=== PATIENT | female | born 1985 | race Caucasian/White ===

== ENCOUNTER 2021-04-13 05:43 | Inpatient (IN) ==
[2021-04-13] MEDS ORDERED: BUTORPHANOL 2 MG/ML VIAL IV PRN (05:53)
[2021-04-13] MEDS ORDERED: ONDANSETRON 4 MG/2 ML VIAL IV PRN ×3 (05:53→15:01)
[2021-04-13] MEDS ORDERED: MEPERIDINE 50 MG/1 ML VIAL IV PRN (05:53)
[2021-04-13 06:38] LABS: Basophils % 0.2 % (0.0-0.8); Eosinophils # 0.1 10*3/uL (0.0-0.87); Eosinophils % 0.4 % (0.00-10.9); Hemoglobin 12.1 GM/DL (12.0-16.0); Immature Granulocytes % 1.1 %; Immature Granulocytes Absolute 0.17 #; Lymphocytes # 3.2 10*3/uL (1.4-4.0); Lymphocytes % 20.4 % (21.3-54.2); Mean Corpuscular HGB Conc 32.7 GM/DL (32-36); Mean Corpuscular Volume 91.6 FL (87-102); Monocytes % 4.1 % (1.7-12.7); Neutrophils % 73.8 % (38.7-73.9); Platelet Count 219 T/CUMM (130-400); Red Blood Count 4.04 MC/CUMM (3.8-5.5); Red Cell Distribution Width 13.5 % (9.3-17.3); White Blood Count 15.8 T/CUMM (4-12)
[2021-04-13] MEDS ORDERED: OXYTOCIN/LR 20 UNIT/1,000 ML BAG IV ONE ×3 (06:43→15:01)
[2021-04-13 06:54] LABS: Albumin 2.4 G/DL (3.4-5.0); Bilirubin,Total 1.4 MG/DL (0.20-1.00); Calcium 9.4 MG/DL (8.5-10.1); Potassium 3.9 MMOL/L (3.5-5.1); Total Protein 6.4 G/DL (6.4-8.2)
[2021-04-13] MEDS: LACTATED RINGERS 1,000 ML IV SCH ×2 (07:26→13:03)
[2021-04-13] MEDS ORDERED: NALOXONE 0.4 MG/ML VIAL IV PRN (09:58)
[2021-04-13] MEDS ORDERED: hydrOXYzine HCL 25 MG/1 ML VIAL IM PRN (09:58)
[2021-04-13] MEDS ORDERED: ePHEDrine 50 MG/ML VIAL IV PRN (09:58)
[2021-04-13] MEDS ORDERED: PROMETHAZINE 25 MG/1 ML VIAL IM PRN (09:58)
[2021-04-13] MEDS ORDERED: FAMOTIDINE 20 MG/2 ML VIAL IV ONE (09:58)
[2021-04-13] MEDS ORDERED: LACTATED RINGERS 250 ML IV PRN (09:58)
[2021-04-13] MEDS ORDERED: LACTATED RINGERS 1,000 ML IV ONE (09:58)
[2021-04-13] MEDS ORDERED: CITRIC ACID/SODIUM CITRATE 30 ML UDCUP PO ONE (09:58)
[2021-04-13] MEDS ORDERED: diphenhydrAMINE 50 MG/1 ML VIAL IV PRN ×2 (09:58)
[2021-04-13] MEDS ORDERED: fentaNYL 2 MCG/ROPIV 0.2% EPID 100 ML EPIDURAL SCH (10:00)
[2021-04-13] MEDS ORDERED: ePHEDrine 50 MG/ML VIAL IV STA (11:51)
[2021-04-13] MEDS ORDERED: miSOPROStoL 200 MCG TABLET ONE (14:14)
[2021-04-13] MEDS ORDERED: TRANEXAMIC ACID 1,000 MG/10 ML VIAL ONE (14:14)
[2021-04-13] MEDS ORDERED: CARBOPROST TROMETHAMINE 250 MCG/ML AMP IM ONE (14:15)
[2021-04-13] MEDS ORDERED: METHYLERGONOVINE 0.2 MG/1 ML AMP ONE (14:15)
[2021-04-13] MEDS ORDERED: SODIUM CHLORIDE 0.9% 0 ML IV ONE (14:15)
[2021-04-13] MEDS ORDERED: LANOLIN 50% CREAM 0.3 OZ TUBE TOP PRN (15:01)
[2021-04-13] MEDS ORDERED: HYDROCORTISONE 2.5% RECTAL CREAM 30 GM TUBE TOP PRN (15:01)
[2021-04-13] MEDS ORDERED: MEASLES/MUMPS/RUBELLA VACCINE 0.5 ML VIAL SUBCUT ONE (15:01)
[2021-04-13] MEDS ORDERED: METHYLERGONOVINE 0.2 MG/1 ML AMP IM ONE (15:01)
[2021-04-13] MEDS ORDERED: DIPH/TET/ACEL PERT BOOSTER VACCINE 0.5 ML VIAL IM ONE (15:01)
[2021-04-13] MEDS ORDERED: BENZOCAINE 20%/MENTHOL 0.5% SPRAY 56 GM CAN TOP PRN (15:01)
[2021-04-13] MEDS ORDERED: ACETAMINOPHEN 325 MG TABLET PO PRN (15:01)
[2021-04-13] MEDS ORDERED: ACETAMINOPHEN/CODEINE 300-30 MG TABLET PO PRN (15:01)
[2021-04-13] MEDS ORDERED: WITCH HAZEL PADS 100/JAR TOP PRN (15:01)
[2021-04-13] MEDS ORDERED: RHO(D) IMMUNE GLOBULIN 300 MCG SYRINGE IM ONE (15:01)
[2021-04-13] MEDS ORDERED: BISACODYL 10 MG SUPP RECTAL PRN (15:01)
[2021-04-13 15:05] LABS: Cord Arterial Blood HCO3 20.1 MMOL/L
[2021-04-13 15:07] LABS: Cord Venous Blood HCO3 18.5 MMOL/L; Cord Venous Blood PCO2 27.7 MMHG; Cord Venous Blood PO2 37.1 MMHG
[2021-04-13] MEDS: IBUPROFEN 800 MG TABLET PO PRN (18:43)
[2021-04-13] MEDS: DOCUSATE SODIUM 100 MG CAPSULE PO SCH (20:58)
[2021-04-14] MEDS: IBUPROFEN 800 MG TABLET PO PRN ×4 (00:25→20:10)
[2021-04-14 05:24] LABS: Basophils % 0.2 % (0.0-0.8); Eosinophils # 0.1 10*3/uL (0.0-0.87); Eosinophils % 0.4 % (0.00-10.9); Hematocrit 33.3 VOL% (35.7-47.0); Hemoglobin 11.4 GM/DL (12.0-16.0); Immature Granulocytes % 0.8 %; Immature Granulocytes Absolute 0.15 #; Lymphocytes # 3.1 10*3/uL (1.4-4.0); Lymphocytes % 16.5 % (21.3-54.2); Mean Corpuscular HGB Conc 34.2 GM/DL (32-36); Mean Corpuscular Volume 89.8 FL (87-102); Mean Platelet Volume 10.9 FL (9.6-12.0); Monocytes % 4.7 % (1.7-12.7); Neutrophils % 77.4 % (38.7-73.9); Platelet Count 178 T/CUMM (130-400); Red Blood Count 3.71 MC/CUMM (3.8-5.5); Red Cell Distribution Width 13.5 % (9.3-17.3)
[2021-04-14] MEDS: DOCUSATE SODIUM 100 MG CAPSULE PO SCH ×2 (08:20→20:10)
[2021-04-15] MEDS: IBUPROFEN 800 MG TABLET PO PRN (04:07)
[2021-04-15 10:42] VITALS: BP 149/90
[2021-04-15] MEDS: DOCUSATE SODIUM 100 MG CAPSULE PO SCH (13:10)
== END 2021-04-15 11:15 | disposition home or self-care (01) | DRG 560 ==
LOC: N.LD 05:43 → N.OB 18:18
PROVIDERS: ADMIT Obstetrics & Gynecology; ATTEND Obstetrics & Gynecology

== ENCOUNTER 2022-03-22 04:37 | Inpatient (IN) ==
[2022-03-22] MEDS ORDERED: TRANEXAMIC ACID 1,000 MG in SODIUM CHLORIDE 0.9% 100 ML IV PRN (05:20)
[2022-03-22] MEDS ORDERED: CARBOPROST TROMETHAMINE 250 MCG/ML AMP IM PRN (05:20)
[2022-03-22] MEDS ORDERED: OXYTOCIN/LR 20 UNIT/1,000 ML BAG IV PRN (05:20)
[2022-03-22] MEDS ORDERED: ONDANSETRON 4 MG/2 ML VIAL IV PRN ×2 (05:20→09:42)
[2022-03-22] MEDS ORDERED: METHYLERGONOVINE 0.2 MG/1 ML AMP IM PRN (05:20)
[2022-03-22] MEDS ORDERED: miSOPROStoL 200 MCG TABLET RECTAL PRN (05:20)
[2022-03-22] MEDS ORDERED: hydrOXYzine HCL 25 MG/1 ML VIAL IM PRN (05:23)
[2022-03-22] MEDS ORDERED: ONDANSETRON 4 MG/2 ML VIAL IV ONE (05:23)
[2022-03-22] MEDS ORDERED: diphenhydrAMINE 50 MG/1 ML VIAL IV PRN ×2 (05:23)
[2022-03-22] MEDS ORDERED: LACTATED RINGERS 1,000 ML IV PRN (05:23)
[2022-03-22] MEDS ORDERED: ePHEDrine 50 MG/ML VIAL IV PRN (05:23)
[2022-03-22] MEDS ORDERED: NALOXONE 0.4 MG/ML VIAL IV PRN (05:23)
[2022-03-22] MEDS ORDERED: PROMETHAZINE 25 MG/1 ML VIAL IM PRN (05:23)
[2022-03-22] MEDS ORDERED: CITRIC ACID/SODIUM CITRATE 30 ML UDCUP PO PRN (05:24)
[2022-03-22] MEDS ORDERED: FAMOTIDINE 20 MG/2 ML VIAL IV PRN (05:24)
[2022-03-22] MEDS ORDERED: LACTATED RINGERS 1,000 ML IV SCH (05:30)
[2022-03-22] MEDS ORDERED: fentaNYL 2 MCG/ROPIV 0.2% EPID 100 ML EPIDURAL SCH (05:30)
[2022-03-22 05:41] LABS: Basophils % 0.2 % (0.0-0.8); Eosinophils % 0.3 % (0.00-10.9); Hematocrit 34.5 VOL% (35.7-47.0); Hemoglobin 11.6 GM/DL (12.0-16.0); Immature Granulocytes % 0.7 %; Immature Granulocytes Absolute 0.11 #; Lymphocytes # 2.5 10*3/uL (1.4-4.0); Lymphocytes % 16.4 % (21.3-54.2); Mean Corpuscular HGB Conc 33.6 GM/DL (32-36); Mean Corpuscular Volume 89.1 FL (87-102); Mean Platelet Volume 10.6 FL (9.6-12.0); Monocytes # 0.8 10*3/uL (0.11-0.8); Monocytes % 5.3 % (1.7-12.7); Neutrophils % 77.1 % (38.7-73.9); Platelet Count 241 T/CUMM (130-400); Red Blood Count 3.87 MC/CUMM (3.8-5.5); White Blood Count 15.2 T/CUMM (4-12)
[2022-03-22 06:00] LABS: Alanine Aminotransferase 56 U/L (13-56); Albumin 2.3 G/DL (3.4-5.0); Alkaline Phosphatase 221 U/L (45-117); Aspartate Amino Transferase 35 U/L (0-37); Bilirubin,Total < 0.39 MG/DL (0.20-1.00); Blood Urea Nitrogen 12 MG/DL (7-18); Calcium 8.9 MG/DL (8.5-10.1); Carbon Dioxide 20 MMOL/L (21-32); Chloride 109 MMOL/L (98-107); Glucose 86 MG/DL (74-106); Osmolality,Calculated 273.7 MOS/KG (273-304); Potassium 3.8 MMOL/L (3.5-5.1); Sodium 138 MMOL/L (136-145); Total Protein 6.2 G/DL (6.4-8.2)
[2022-03-22] MEDS ORDERED: TRANEXAMIC ACID 1,000 MG/10 ML VIAL ONE (09:02)
[2022-03-22] MEDS ORDERED: SODIUM CHLORIDE 0.9% 0 ML IV ONE (09:02)
[2022-03-22] MEDS ORDERED: METHYLERGONOVINE 0.2 MG/1 ML AMP ONE (09:03)
[2022-03-22] MEDS ORDERED: CARBOPROST TROMETHAMINE 250 MCG/ML AMP IM ONE (09:03)
[2022-03-22 09:25] LABS: Cord Venous Blood HCO3 22.8 MMOL/L; Cord Venous Blood PCO2 47.6 MMHG; Cord Venous Blood PO2 30.7
[2022-03-22] MEDS ORDERED: DIPH/TET/ACEL PERT BOOSTER VACCINE 0.5 ML VIAL IM ONE (09:42)
[2022-03-22] MEDS ORDERED: BENZOCAINE 20%/MENTHOL 0.5% SPRAY 56 GM CAN TOP PRN (09:42)
[2022-03-22] MEDS ORDERED: OXYTOCIN/LR 20 UNIT/1,000 ML BAG IV ONE (09:42)
[2022-03-22] MEDS ORDERED: HYDROCORTISONE 2.5% RECTAL CREAM 30 GM TUBE TOP PRN (09:42)
[2022-03-22] MEDS ORDERED: BISACODYL 10 MG SUPP RECTAL PRN (09:42)
[2022-03-22] MEDS ORDERED: LANOLIN 50% CREAM 0.3 OZ TUBE TOP PRN (09:42)
[2022-03-22] MEDS ORDERED: MEASLES/MUMPS/RUBELLA VACCINE 0.5 ML VIAL SUBCUT ONE (09:42)
[2022-03-22] MEDS ORDERED: WITCH HAZEL PADS 100/JAR TOP PRN (09:42)
[2022-03-22] MEDS ORDERED: ACETAMINOPHEN 325 MG TABLET PO PRN (09:42)
[2022-03-22] MEDS ORDERED: ACETAMINOPHEN/CODEINE 300-30 MG TABLET PO PRN (09:45)
[2022-03-22] MEDS: IBUPROFEN 800 MG TABLET PO PRN ×2 (13:47→21:01)
[2022-03-22] MEDS: ACETAMINOPHEN/CODEINE 300-30 MG TABLET PO PRN (13:48)
[2022-03-22 16:21] LABS: Hematocrit 31.5 VOL% (35.7-47.0); Hemoglobin 10.5 GM/DL (12.0-16.0)
[2022-03-22] MEDS: DOCUSATE SODIUM 100 MG CAPSULE PO SCH (21:01)
[2022-03-23 05:07] LABS: Basophils % 0.3 % (0.0-0.8); Eosinophils # 0.1 10*3/uL (0.0-0.87); Eosinophils % 0.6 % (0.00-10.9); Hematocrit 31.2 VOL% (35.7-47.0); Hemoglobin 10.3 GM/DL (12.0-16.0); Immature Granulocytes % 0.8 %; Immature Granulocytes Absolute 0.12 #; Lymphocytes # 2.3 10*3/uL (1.4-4.0); Lymphocytes % 16.2 % (21.3-54.2); Mean Corpuscular Volume 90.7 FL (87-102); Mean Platelet Volume 10.8 FL (9.6-12.0); Monocytes # 0.7 10*3/uL (0.11-0.8); Neutrophils % 77.1 % (38.7-73.9); Platelet Count 206 T/CUMM (130-400); Red Blood Count 3.44 MC/CUMM (3.8-5.5); Red Cell Distribution Width 13.2 % (9.3-17.3); White Blood Count 14.4 T/CUMM (4-12)
[2022-03-23] MEDS: FERROUS SULFATE 325 MG TABLET PO SCH (09:00)
[2022-03-23] MEDS: MULTIVITAMIN (PRENATAL) TABLET PO SCH (09:00)
[2022-03-23] MEDS: DOCUSATE SODIUM 100 MG CAPSULE PO SCH ×2 (09:00→23:15)
[2022-03-23] MEDS: SIMETHICONE CHEW 80 MG TABLET PO PRN ×2 (09:52→20:15)
[2022-03-23] MEDS: IBUPROFEN 800 MG TABLET PO PRN ×2 (12:26→23:19)
[2022-03-23] MEDS: ACETAMINOPHEN/CODEINE 300-30 MG TABLET PO PRN ×2 (12:27→22:01)
[2022-03-24] MEDS: SIMETHICONE CHEW 80 MG TABLET PO PRN (02:07)
[2022-03-24 07:16] VITALS: BP 126/68
[2022-03-24] MEDS: FERROUS SULFATE 325 MG TABLET PO SCH (09:50)
[2022-03-24] MEDS: DOCUSATE SODIUM 100 MG CAPSULE PO SCH (09:50)
[2022-03-24] MEDS: MULTIVITAMIN (PRENATAL) TABLET PO SCH (09:50)
== END 2022-03-24 11:21 | disposition home or self-care (01) | DRG 560 ==
LOC: N.LD 04:37 → N.OB 11:14
PROVIDERS: ADMIT Obstetrics & Gynecology; ATTEND Obstetrics & Gynecology